=== PATIENT | male | born 1955 | race Caucasian/White ===

== ENCOUNTER 2019-03-29 12:43 | Emergency (ER) | payer OTHER, SELFPAY ==
[2019-03-29 12:55] VITALS: BP 159/99; PULSE 65; RESP 19; TEMP 36.8; O2SAT 96; BMI 29.2
--- NOTE | 2019-03-29 12:55 | DI.RAD.S_ITS ---
PROCEDURE: XR CHEST 2V INDICATIONS: cough TECHNIQUE: 2 views of the chest were acquired. COMPARISON: None. FINDINGS: Surgical changes and devices: None. Lungs and pleura: Mild, streaky opacities are seen at the lung bases. No pleural effusions or pneumothorax. Low lung volumes are noted. This causes a crowded appearance to the lung markings and limits evaluation. Mediastinum: Mediastinal contours are normal. Heart size is normal. Bones and chest wall: No suspicious bony abnormalities. Soft tissues appear unremarkable. IMPRESSION: Likely atelectasis is seen at the lung bases. Differential diagnosis includes mild infiltrate, yet this is considered to be less likely. As clinically appropriate, a short-term followup chest series (with PA and lateral views) performed in deep inspiration is suggested for further evaluation. Dictated by: Guero Marroquin M.D. on 03/29/2019 at 12:27 Approved by: Guero Marroquin M.D. on 03/29/2019 at 12:28
[2019-03-29 13:52] VITALS: PULSE 69; RESP 20; O2SAT 90
[2019-03-29] MEDS: ALBUTEROL/IPRATROPIUM 3 ML AMPUL INH (13:52)
--- NOTE | 2019-03-29 14:21 | ED_ITS ---
HPI - URI/Sore Throat <RAFAT Barahona - Last Filed: 03/29/19 23:53> General Chief Complaint: Upper Respiratory Symptoms Stated Complaint: bad cough and a fracture maxil pallet possible Time Seen by Provider: 03/29/19 12:54 Source: patient Mode of arrival: Ambulatory Limitations: no limitations History of Present Illness HPI Narrative: This is a 63-year-old male, nonsmoker, who presents to ED with moist cough but difficulty to expectorate, short of breath, chest discomfort with coughing for last 5-6 days, fatigue, sinus infection, headaches and pain in left side hard palate for several month. Patient reports he noticed productive cough with yellowish mucus since yesterday and he is reporting low- grade fever up to 100.6 with night sweats. Patient has been taking codeine s yrup for his cough and occasional wvkj-wem-ntuotrk Mucinex for his symptoms. Patient states he had 2 sinus infections recently but states he always have runny nose. His nasal discharge is clear from L naris only and his facial discomfort is chronic as well w/o changes. Patient stop taking Flonase about a week ago. Patient states he had a partial denture in left upper region and several months ago he felt a crack and since the he has been having discomfort. Patient denies bleeding, swelling, discharge from the site. He states he has an appointment this coming week with dentist for this but would like to get checked out since his in ED. Patient reports history of multiple sinus surgeries and CLL but not requiring any treatments at this time. Related Data Previous Rx's Medication Instructions Recorded amoxicillin-pot clavulanate 875 mg PO Q12H 10 Days #0 tab 04/07/16 [Augmentin] albuterol sulfate 2 inhalation INHALATION Q4-6H PRN 03/29/19 #1 each doxycycline hyclate 100 mg PO BID 7 Days #14 tab 03/29/19 Allergies Allergy/AdvReac Type Severity Reaction Status Date / Time Sulfa (Sulfonamide Allergy Intermediate Unverified 06/19/17 12:13 Antibiotics) [SULFA (SULFONAMIDE ANTIBIOTICS)] Review of Systems <RAFAT Barahona - Last Filed: 03/29/19 23:53> Review of Systems Narrative: General: Reports fever, chills, fatigue, malaise, sweats. HEENT: Denies (+) sinus pain, ear pain, sore throat, difficulty swallowing, dizziness. Respiratory: See HPI Cardiovascular: Denies chest pain, palpitations, orthopnea, edema. Gastrointestinal: Denies nausea, vomiting, abdominal pain, diarrhea, constipation, melena. : Denies dysuria, frequency, incontinence, hematuria, urinary retention. Musculoskeletal: Denies weakness, joint pain or bony pain. Skin: Denies rash, skin lesions, or other. Neurologic: Denies weakness, (+) headache, numbness, change in speech, confusion, seizures, incoordination. Psychiatric: No concerning psychosocial issues. 12-point review of systems is negative except for those stated above. Patient History <RAFAT Barahona - Last Filed: 03/29/19 23:53> Medical History CLL (chronic lymphocytic leukemia) (Acute) Retinal detachment (Acute) Surgical History H/O knee surgery (Acute) H/O sinus surgery (Acute) History of mandibular surgery (Acute) Social History Smoking Status: Never smoker Smoking Status: Never smoker alcohol intake frequency: holidays/special occasions only Substance Use Type: does not use Exam <RAFAT Barahona - Last Filed: 03/29/19 23:53> Narrative Exam Narrative: GEN: Alert, oriented x 3, well nourished, and in mild distress. Head: Normal cephalic, atraumatic. No scalp or temporal tenderness, palpable mass or rash. EYES: Pupils are equal, round, and reactive to light and accommodation. Extraocular muscles are intact bilaterally. There is no subconjunctival hemorrhage, exudate and sclera non-icteric. ENT: Bilateral auditory canals and tympanic membranes clear. Hearing grossly intact. Nose without bleeding, purulent discharge or deviation. Swollen turbinates with erythema. Facial sinuses nontender to palpate. Mucous membrane moist, no mucosal lesion, bleeding, drainage, deformity. Throat without erythema, tonsillar hypertrophy or exudate. Uvula in midline, airway patent. Neck: Trachea in midline. No JVD, tender to palpate in cervical lymph nodes. No masses or thyroid megaly. Supple, non-tender and no meningeal signs. CARDIAC: Normal regular rate and rhythm without murmurs, gallops, or rubs. No chest wall tenderness. No peripheral edema, cyanosis or pallor. Capillary refill is less than 2 seconds. RESPIRATORY: Lungs are clear to auscultate bilaterally but decreased. Intermittent coughing during exam without wheezes, rales, or rhonchi. No strid or, respiratory distress, increase work of breathing, or accessary muscle used. ABD: Abdomen soft, nontender and non-distended. No guarding or rebound tenderness to palpate. Bowel sounds are normal in all 4 quadrants. There is no palpable masses or organomegaly. EXT: Full painless ROM of all extremities with no loss of sensation, strength, effusion or edema. SKIN: Warm, dry, normal color for patient. No erythema, lesions or rash over visible areas. BACK: Nontender without deformity or crepitance. No flank tenderness. NEUROLOGICAL: Alert and oriented to place, time and person. Sensation and motor function intact bilaterally. No facial droops, dysphasia. PSYCHIATRIC: Good judgement and reason, without hallucinations, abnormal affect or abnormal behaviors during the examination. Patient is not suicidal. Initial Vital Signs Initial Vital Signs: Vital Signs Temperature 98.3 F 03/29/19 12:55 Pulse Rate 65 03/29/19 12:55 Respiratory Rate 03/29/19 12:55 Blood Pressure 159/99 H 03/29/19 12:55 Pulse Oximetry 96 03/29/19 12:55 <Roya Moon DO - Last Filed: 03/30/19 08:20> Initial Vital Signs Initial Vital Signs: Vital Signs Temperature 98.3 F 03/29/19 12:55 Pulse Rate 65 03/29/19 12:55 Respiratory Rate 03/29/19 12:55 Blood Pressure 159/99 H 03/29/19 12:55 Pulse Oximetry 96 03/29/19 12:55 Course <RAFAT Barahona - Last Filed: 03/29/19 23:53> Orders Ordered: Discontinued Medications Albuterol (Ventolin) 5 mg INH NOW ONE Stop: 03/29/19 14:21 Albuterol (Ventolin) 2.5 mg INH NOW ONE Stop: 03/29/19 14:50 Last Admin: 03/29/19 14:52 Dose: 2.5 mg Documented by: KADIE Albuterol/Ipratropium (Duoneb) 3 ml INH NOW ONE Stop: 03/29/19 13:38 Last Admin: 03/29/19 13:52 Dose: 3 ml Documented by: KADIE Vital Signs Vital signs: Vital Signs - 8 hr 03/29/19 12:55 03/29/19 13:52 Temperature 98.3 F Pulse Rate 65 69 Respiratory Rate 19 20 Blood Pressure 159/99 H Pulse Oximetry 96 90 L <Roya Moon DO - Last Filed: 03/30/19 08:20> Orders Ordered: Discontinued Medications Albuterol (Ventolin) 5 mg INH NOW ONE Stop: 03/29/19 14:21 Albuterol (Ventolin) 2.5 mg INH NOW ONE Stop: 03/29/19 14:50 Last Admin: 03/29/19 14:52 Dose: 2.5 mg Documented by: KADIE Albuterol/Ipratropium (Duoneb) 3 ml INH NOW ONE Stop: 03/29/19 13:38 Last Admin: 03/29/19 13:52 Dose: 3 ml Documented by: KADIE Vital Signs Vital signs: Vital Signs - 8 hr 03/29/19 12:55 03/29/19 13:52 Temperature 98.3 F Pulse Rate 65 69 Respiratory Rate 19 20 Blood Pressure 159/99 H Pulse Oximetry 96 90 L MDM - URI/Sore Throat <RAFAT Barahona - Last Filed: 03/29/19 23:53> Differential Diagnosis Differential diagnosis: Likely upper respiratory infection, bronchitis and other (pneumonia) Medical Records Attestation: I reviewed the patient's medical records. Imaging Data Chest x-ray: Radiologist's Impression: [address] [address] XRay Report Signed Patient: Francisco Javier Rosado [facility]#: [id number] : 7Acct:[id number] Age/Sex: 63 / MDate of Service: 03/29/19 Loc: ED Accession Number: [id number] Procedure: XR chest 2V Ordering Provider: Omer Petersen PROCEDURE: XR CHEST 2V INDICATIONS: cough TECHNIQUE: 2 views of the chest were acquired. COMPARISON: None. FINDINGS: Surgical changes and devices: None. Lungs and pleura: Mild, streaky opacities are seen at the lung bases. No pleural effusions or pneumothorax. Low lung volumes are noted. This causes a crowded appearance to the lung markings and limits evaluation. Mediastinum: Mediastinal contours are normal. Heart size is normal. Bones and chest wall: No suspicious bony abnormalities. Soft tissues appear unremarkable. IMPRESSION: Likely atelectasis is seen at the lung bases. Differential diagnosis includes mild infiltrate, yet this is considered to be less likely. As clinically appropriate, a short-term followup chest series (with PA and lateral views) performed in deep inspiration is suggested for further evaluation. Dictated by: Guero Marroquin M.D. on 03/29/2019 at 12:27 Approved by: Guero Marrqouin M.D. on 03/29/2019 at 12:28 MDM Narrative Medical decision making narrative: Oral exam benign and pain lasted several months there is no change today and advised to follow-up with dentist as scheduled. Turbinate swollen with erythema but no purulent discharge was seen. Facial sinus without significant tenderness to palpate. Patient advised to restart Flonase and continue with Neti potty daily for nasal rinses. Duoneb and albuterol treatment provided for short of breath, self reported wheezing, cough which improved patient's symptoms, however, patient has or to set decreased from 96% initially to 93% post neb treatment. No respiratory distress or increased work of breathing noted. CXR shows mild streaky opacity at the lung bases. Will treat patient with doxycycline b.i.d. 7 day course for pneumonia. Patient discharged to home with albuterol and a spacer for prn use. Return precautions were discussed with the patient and advised to continue with xoih-shf-nidhfuj Mucinex and codeine elix for night use for cough. Patient advised to follow up with PCP in 2-3 days. Patient verbalized understanding and agrees with treatment plan. Discharge Plan Departure Patient Disposition: Home Clinical Impression: Pneumonia Qualifiers: Pneumonia type: due to unspecified organism Laterality: bilateral Lung location: lower lobe of lung Qualified Code(s): J18.9 - Pneumonia, unspecified organism Discharge Date/Time: 03/29/19 15:20 Instructions: DI for Pneumonia -- Adult Activity Restrictions/Additional Instructions: You have been diagnosed with [pneumonia. Lung x-ray test shows mild streaky opacities at the lung bases.]. What to do: *Take your medications as directed. Will treat with antibiotic medication doxycycline for your symptoms. Please take doxycycline twice a day forced 7 days. Use inhaler for short of breath, wheezing, breathing difficulty every 4-6 hours using spacer. This medications were transmitted to [facility] in [place]. Please take pofo-hcc-kbzzoyl Tylenol and or Motrin as needed for discomfort and fever. Please restart using Flonase for nasal congestion. You can add Mucinex for cough and cold symptoms. *Follow up with your primary care provider and dentist in 2-3 days, call for an appointment. Let them know you were seen in the ED and that we asked you to be seen in follow up. *Return to ED if you have any new, worsening, or concerning symptoms, such as [chest pain, breathing difficulty, unable to tolerate fluids, high fever or any acute concerns]. Prescriptions: New doxycycline hyclate 100 mg tablet 100 mg PO BID 7 Days Qty: 14 RF: 0 albuterol sulfate 90 mcg/actuation aerosol powdr breath activated 2 inhalation INHALATION Q4-6H PRN (Reason: shortness of breath or wheezing) Qty: 1 RF: 0 No Action amoxicillin-pot clavulanate [Augmentin] 875 MG/125 MG tablet 875 mg PO Q12H 10 Days Qty: 0 RF: 0 Referrals: Mat Santa MD [Primary Care Provider] -
[2019-03-29] MEDS: ALBUTEROL 2.5 MG/3 ML NEB (ADULT) INH (14:52)
[2019-03-29 14:53] VITALS: PULSE 64; RESP 20; O2SAT 92
[2019-03-29 15:00] VITALS: O2SAT 93
== END 2019-03-29 15:20 | disposition home or self-care (01) ==
PROVIDERS: Emergency Provider Nurse Practitioner Family; PCP Family Medicine
DX: J18.9 Pneumonia, unspecified organism (principal)
CPT/HCPCS: 71046; 94640; 99284; J7613

== ENCOUNTER → 2019-08-26 10:58 | Outpatient (CLI) | payer OTHER, SELFPAY ==
--- NOTE | 2019-08-26 | DI.US.S_ITS ---
PROCEDURE: US ABDOMEN COMPLETE INDICATIONS: LEFT UPPER QUADRANT PAIN TECHNIQUE: Real-time scanning was performed of the abdominal and retroperitoneal organs, with image documentation. COMPARISON: [facility], CT, KIDNEY/ URETER/BLADDER, 04/29/2013, 12:58. FINDINGS: Liver: Liver is diffusely increased in echogenicity. No focal hepatic abnormalities identified. Normal hepatic size. Gallbladder: No gallstones identified. Normal gallbladder wall. No pericholecystic fluid. Negative sonographic Gillespie sign. Biliary ducts: Intrahepatic bile ducts are non-dilated. Extrahepatic bile duct caliber measures 4.0 mm. Normal is 6-7 mm or less in diameter, or 10 mm or less post-cholecystectomy. Pancreas: Visualized portions of the pancreas are sonographically normal. Spleen: Spleen is normal in size and homogeneous in echotexture. Kidneys: Kidneys are normal in size and echotexture. Right kidney measures 12.4 cm long; left kidney measures 12.6 cm long. No hydronephrosis or nephrolithiasis. Possible solid hypoechoic mass involving the posterior aspect of the midpole involving the left kidney measuring up to 2.8 cm 30 mm right renal cyst. . Aorta: Visualized aorta is normal in caliber at less than 3 cm. Iliacs: Proximal common iliac arteries are normal in caliber at less than 2.5 cm. IVC: Intrahepatic inferior vena cava is patent. Miscellaneous: No free abdominal fluid. IMPRESSION: 1. Increased hepatic echogenicity noted possibly related to hepatic steatosis but other sources of hepatocellular disease cannot be excluded. Recommend clinical correlation. 2. Possible solid hypoechoic mass involving the posterior aspect of the mid left kidney. Renal protocol CT is recommended for further assessment. Dictated by: Alfred Oglesby [facility] Interpreted: Dinah Ward MD on 08/26/2019 at 12:07 Approved by: Dinah Ward MD, PhD on 08/26/2019 at 14:40
== END ==
PROVIDERS: PCP Family Medicine; Referring Provider Family Medicine; Visit Provider Family Medicine
DX: R10.12 Left upper quadrant pain (principal)
CPT/HCPCS: 76700

== ENCOUNTER → 2019-09-01 11:56 | Outpatient (CLI) | payer OTHER, SELFPAY ==
[2019-09-01 12:45] LABS: BUN Creatinine Ratio 15.3 (6-22); Blood Urea Nitrogen 11 mg/dL (9-20); Calcium 9.5 mg/dL (8.4-10.2); Carbon Dioxide 27 mmol/L (22-32); Chloride 106 mmol/L (98-107); Estimated Glomerular Filt Rate > 60.0 mL/min (>60); Glucose 105 mg/dL (80-110); HEMOLYSIS < 15 (0-50); Potassium 4.4 mmol/L (3.4-5.1); Sodium 137 mmol/L (137-145)
--- NOTE | 2019-09-01 13:20 | DI.CT.S_ITS ---
PROCEDURE: CT ABDOMEN PELVIS WO/W CON INDICATIONS: Disorders of kidney and ureter TECHNIQUE: Optional 5 mm thick noncontrast images acquired from the diaphragm to the symphysis pubis. After the administration of intravenous contrast, 5 mm thick images acquired from the diaphragm to the symphysis pubis after a 10-minute delay. 2 mm thick coronal and sagittal reformats were then performed of the kidneys and ureters. For radiation dose reduction, the following was used: automated exposure control, adjustment of mA and/or kV according to patient size. COMPARISON: [facility], US, US ABDOMEN COMPLETE, 08/26/2019, 11:10. FINDINGS: Image quality: Excellent. Lung bases: Lung bases are clear. Heart size is normal. Urinary system: Both kidneys are normal in size, without hydronephrosis or nephrolithiasis on pre-contrast images. No perinephric fat stranding. There is normal bilateral renal enhancement. No discrete mass is seen. No correlate to the ultrasound findings from recent study dated 08/26/19. Renal calyces appear normal in morphology when filled with contrast. Opacified portions of both ureters demonstrate normal caliber. Bladder wall thickness is normal. No calcified bladder stones. Subcentimeter renal hypodensities, statistically cysts, although technically too small to characterize accurately and therefore nonspecific. Other solid organs: Liver is normal in size and enhancement. Gallbladder unremarkable. Biliary system is non dilated. Pancreas enhances normally. Spleen is normal in size and enhancement. No adrenal nodules. Peritoneum and bowel: Bowel loops demonstrate normal wall thickness and caliber. Large amount of diffuse stool. No free fluid or air. Nodes and vessels: Shotty retroperitoneal lymph nodes, subcentimeter in size. Aorta and inferior vena cava are normal in size. Abdominal wall: No ventral hernias. Pelvis: No pathologic free pelvic fluid. No inguinal hernias or adenopathy. Bones: No suspicious bony lesions. No vertebral body compression fractures. Bilateral hip joint degeneration. IMPRESSION: Overall, no mass or correlate to the ultrasound findings from recent study dated 08/16/19, suggesting the sonographic appearance was artifactual. No nephrolithiasis. No hydronephrosis. Dictated by: Carlos Eduardo Rucker M.D. on 09/02/2019 at 10:07 Approved by: Carlos Eduardo Rucker M.D. on 09/02/2019 at 10:16
== END ==
PROVIDERS: PCP Family Medicine; Referring Provider Family Medicine; Visit Provider Family Medicine
DX: N28.89 Other specified disorders of kidney and ureter (principal)
CPT/HCPCS: 36415; 74178; 80048; Q9967

== ENCOUNTER → 2020-06-20 09:26 | Outpatient (CLI) | payer OTHER, SELFPAY ==
[2020-06-20 20:13] LABS: HEMOLYSIS < 15 (0-50); Potassium 4.5 mmol/L (3.4-5.1)
[2020-06-20 20:14] LABS: BUN Creatinine Ratio 13.5 (6-22); Blood Urea Nitrogen 12 mg/dL (9-20); Calcium 9.8 mg/dL (8.4-10.2); Carbon Dioxide 28 mmol/L (22-32); Chloride 103 mmol/L (98-107); Estimated Glomerular Filt Rate > 60.0 mL/min (>60); Glucose 109 mg/dL (80-110); Sodium 137 mmol/L (137-145)
[2020-06-20 20:24] LABS: Hematocrit 43.3 % (41-53); Hemoglobin 14.3 g/dL (13.5-17.5); Mean Corpuscular HGB Conc 32.9 % (30-36); Mean Corpuscular Hemoglobin 29.6 PG (26-34); Mean Corpuscular Volume 89.9 fL (80-100); Platelet Count 155 X10^3/uL (150-400); Red Blood Cell Count 4.82 X10^6/uL (4.5-5.9); Red Cell Distribution Width 14.4 % (11.6-14.8)
[2020-06-20 20:29] LABS: Add Manual Diff / Slide Review YES
[2020-06-20 20:30] LABS: Free T4, Direct Thyroxine 0.99 ng/dL (0.78-2.19)
[2020-06-20 20:49] LABS: Neutrophils Absolute Manual 2760 /uL (3000-5900); RBC Morphology Normal Morphology; Smudge Cells 2+; Total Cells Counted 100
[2020-06-20 21:04] LABS: Vitamin B12 897 pg/mL (239-931)
[2020-06-21 15:41] LABS: Erythrocyte Sedimentation Rate 1 MM/HR (0-15)
[2020-06-23 00:44] LABS: Anti Gliadin IgG Ab 2 units (0-19); Free Kappa Lt Chains, Serum 13.3 mg/L (3.3-19.4); Free Lambda Lt Chains,Serum 7.5 mg/L (5.7-26.3); Gliadin Gluten IgA 2 units (0-19)
[2020-06-23 13:14] LABS: Immunoglobulin A, Serum 51 mg/dL (61-437); Immunoglobulin G,Serum 538 mg/dL (603-1613); Immunoglobulin M, Serum 28 mg/dL (20-172)
[2020-06-23 13:14] LABS: Albumin 3.9 g/dL (2.9-4.4); Alpha-1-Globulin 0.3 g/dL (0.0-0.4); Alpha-2-Globulin 0.6 g/dL (0.4-1.0); Gamma Globulin 0.6 g/dL (0.4-1.8); Globulin Total 2.4 g/dL (2.2-3.9); Protein, Total 6.3 g/dL (6.0-8.5)
== END ==
PROVIDERS: Psychiatry & Neurology Neurology; PCP Family Medicine; Referring Provider Family Medicine; Visit Provider Family Medicine
DX: C91.10 Chronic lymphocytic leukemia of B-cell type not having achieved remission (principal); R20.0 Anesthesia of skin
CPT/HCPCS: 80048; 82607; 82784; 83516; 83883; 84155; 84165; 84439; 84443; 85007; 85025; 85651; 86334

== ENCOUNTER → 2020-08-09 11:36 | Outpatient (CLI) | payer OTHER, SELFPAY ==
[2020-08-09 21:24] LABS: COVID19 - ORCAS (NP or Nasal) Negative (Negative)
== END ==
PROVIDERS: PCP Family Medicine; Visit Provider Physician Assistant
DX: Z20.822 Contact with and (suspected) exposure to COVID-19 (principal)
CPT/HCPCS: U0003

== ENCOUNTER → 2020-08-11 09:12 | Outpatient (CLI) | payer OTHER, SELFPAY ==
--- NOTE | 2020-08-11 09:16 | DI.MRI.S_ITS ---
PROCEDURE: MR LUMBAR SPINE WO CON INDICATIONS: back pain TECHNIQUE: Noncontrast sagittal T1 spin echo and T2 fast echo, sagittal STIR, axial T1 and T2 fast spin echo through the lumbar spine. In cases with scoliosis, additional coronal T2 fast spin echo may be performed. COMPARISON: [facility], MR, L-SPINE WITHOUT CONTRAST, 08/30/2008, 15:43. [facility], CT, CT ABDOMEN PELVIS WO/W CON, 09/01/2019, 13:14. FINDINGS: Image quality: Diagnostic, with note made of motion artifact. Alignment and Curvature: Mild levoconvex scoliotic curvature is noted. No focal AP alignment abnormality is seen. Bone Marrow: Marrow signal is within normal limits. No acute vertebral body compression fractures. Spinal Cord: Conus medullaris terminates at the L1 level. Visualized cord demonstrates normal signal and size. Paraspinous Soft Tissues: No paravertebral masses. A 12 mm right renal cyst is seen, which has the appearance of a simple cyst on the recent prior CT. T12-L1: Normal appearance. L1-L2: Normal appearance. L2-L3: The disc height is well-preserved. Loss of disc signal is seen at this level. Mild to moderate disc bulge is seen, which is eccentric to the left. There is a mild central disc protrusion. There is a focal annular fissure seen posteriorly. There is xxia-py-uifreuem left-sided and no right-sided neural foraminal narrowing seen. Mild to moderate central canal narrowing is seen. L3-L4: The disc height is well-preserved. Loss of disc signal is seen at this level. Moderate disc bulge is seen, which is eccentric to the right. There is a central disc protrusion. There is at least moderate right-sided and mild left-sided facet hypertrophy seen. There is at least moderate right-sided and ptra-ak-lstwurzx left-sided neural foraminal narrowing seen. There is a mild degree of compression seen upon the exiting right L3 nerve root. Moderate central canal narrowing is seen. L4-L5: Moderate to severe loss of disc height and disc signal can be seen. Reactive marrow endplate changes are seen, which are hyperintense on T1-weighted and T2-weighted imaging and most consistent with fatty metaplasia (Modic type II changes). At least moderate disc bulge is seen, with a central disc protrusion. Moderate facet joint hypertrophy is seen. There is moderate to severe left-sided and moderate right-sided neural foraminal narrowing seen. There is a degree of compression seen upon the exiting nerve roots. Mild central canal narrowing is seen. L5-S1: Moderate loss of disc height is seen. Loss of disc signal is seen. Mild to moderate disc bulge is seen, which is eccentric to the left. There is a mild central disc protrusion. Mild facet joint hypertrophy is seen. There is at least moderate right-sided and moderate to severe left-sided neural foraminal narrowing seen. There is a degree of compression seen upon the exiting nerve roots. Minimal central canal narrowing is seen. IMPRESSION: Multiple levels of lumbar spine degenerative change are seen, which have clearly progressed compared to 2009. Several sites of significant neural foraminal narrowing can be seen, with associated exiting nerve root compression. Dictated by: Guero Marroquin M.D. on 08/11/2020 at 12:32 Approved by: Guero Marroquin M.D. on 08/11/2020 at 12:37
--- NOTE | 2020-08-11 14:39 | P.PCN_ITS ---
Cardiac Stress Test Report Referral & Results Date Patient Seen: 08/11/20 Requesting provider: Kian Prasad Indication: Chest pressure/pain Rest ECG: Unremarkable Procedure Note: Today following both written and verbal informed consent the patient was exercised according to a standard Cory protocol patient went for a total of 4 minutes 47 seconds achieving a maximum heart rate of 134 maximum systolic blood pressure of 270. This is approximately 7.0 METS. Exercise was terminated at this point because of patient was unable to continue. Patient was also given Cardiolite through a previously started Hep-Lock IV by the diagnostic imaging staff approximately 1 minute prior to the cessation of exercise. There are no ST-T segment changes identified There were frequent PACs and PVCs primarily in the recovery portion of the test, this included a 10 beat run of VT as well as shorter runs and ventricular bigeminy as well. This occurred while he was quite hypertensive in the immediate post exercise recovery portion His blood pressure response was quite excessive as above Function aerobic impairment rates about 33% sedentary scale Impression: No clear evidence of ischemia. Quite hypertensive response suggest patient would benefit from antihypertensive therapy or adjustment of current antih ypertensive therapy. Given his dysrhythmia would also suggest echocardiography. These recommendations were discussed with patient at time of treadmill Please note: Actual ECG tracings can be found in the PACS system.
--- NOTE | 2020-08-11 18:29 | DI.NM.S_ITS ---
PROCEDURE PERFORMED: Exercise treadmill stress and rest myocardial perfusion imaging study with gating to assess ejection fraction and regional wall motion. DATE OF SERVICE: August 11, 2020 ORDERING PROVIDER: Kian Prasad MD INDICATIONS: The patient is a 65-year-old male with fibromyalgia and atypical chest pressure lasting a few seconds. CARDIAC STRESS: The patient was able to exercise for a total of 4 minutes 47 seconds on a standard Cory protocol suggesting moderate-severely reduced exercise capacity with an MARK of +35%. He had a mildly blunted heart rate response, achieving a maximum heart rate of 134 BPM (86% of his predicted maximum) and a markedly hypertensive blood pressure response to exercise with a resting blood pressure 146/98, increasing to a maximum of 270/100. He developed mild chest discomfort and fatigue although details are not provided. His resting ECG shows sinus rhythm with normal ST segments. There are no significant ST-segment shifts. He had occasional PVCs and a 10 beat run of nonsustained ventricular tachycardia in early recovery but was apparently asymptomatic. At 3 minutes 45 seconds of exercise a heart rate of 119 BPM, 26.8 millicuries of technetium-99m Myoview was injected and he was imaged 25 minutes later using a gated SPECT acquisition protocol. Earlier in the day while at rest, he had been injected with 11.6 millicuries of technetium-99m Myoview and was imaged 30 minutes later, again using a gated SPECT acquisition protocol. FINDINGS: RAW DATA: There is fair myocardial tracer uptake. The lung/heart ratio was normal at 0.29 with a normal TID ratio of 0.89. QUANTITATED GATED SPECT: Post-stress ejection fraction is 69% without any focal wall motion abnormality but probable increased left ventricular volumes. Resting ejection fraction is 61% with moderately increased resting end-diastolic volume of 187 mL. MYOCARDIAL PERFUSION IMAGING: Post-stress supine images show a fairly normal myocardial perfusion pattern without any significant perfusion defects, supported by normal perfusion imaging in the prone position. The resting images show no areas of improvement. IMPRESSION: 1. Normal myocardial perfusion study for ischemia although with slightly reduced sensitivity because of a marginal heart rate response to exercise. 2. No evidence of myocardial ischemia or previous myocardial infarction. 3. Normal left ventricular systolic function with moderately increased left ventricular volumes. 4. Moderate-severely reduced exercise capacity with exertional chest discomfort that was not specified and a significant hypertensive blood pressure response to exercise, but no ECG evidence of ischemia. He had PVCs and a 10 beat run of nonsustained ventricular tachycardia in early recovery, likely reflecting his severe hypertension. Francisco Javier Rosado - CARRIE/mindy/hunter doc#: [id number]/job#: [id number] dd: 08/11/2020 16:44:00 dt: 08/11/2020 17:23:00 DICTATING MD/COPIES TO: Niels Oneill MD; Kian Prasad MD COPIES MNE: TOMAS;
== END ==
PROVIDERS: PCP Family Medicine; Referring Provider Family Medicine; Visit Provider Family Medicine
DX: R01.1 Cardiac murmur, unspecified (principal); I10 Essential (primary) hypertension; M54.32 Sciatica, left side; G89.29 Other chronic pain; M54.9 Dorsalgia, unspecified
CPT/HCPCS: 72148; 78452; 93016; 93017; 93018; A9502

== ENCOUNTER → 2020-12-09 13:08 | Outpatient (CLI) | payer OTHER, SELFPAY ==
[2020-12-09 20:19] LABS: BUN Creatinine Ratio 14.8 (6-22); Blood Urea Nitrogen 12 mg/dL (9-20); Calcium 9.4 mg/dL (8.4-10.2); Carbon Dioxide 31 mmol/L (22-32); Chloride 103 mmol/L (98-107); Estimated Glomerular Filt Rate > 60.0 mL/min (>60); Glucose 114 mg/dL (80-110); HEMOLYSIS < 15 (0-50); Potassium 4.1 mmol/L (3.4-5.1); Sodium 138 mmol/L (137-145)
[2020-12-09 20:46] LABS: Cortisol Random 9.88 ug/dL
[2020-12-16 13:36] LABS: Aldosterone/Renin Activity Rat >40.7 (0.0-30.0); Plama Renin, LC/MS/MS <0.167 ng/mL/hr (0.167-5.380)
== END ==
PROVIDERS: PCP Family Medicine; Visit Provider Internal Medicine Cardiovascular Disease
DX: I10 Essential (primary) hypertension (principal); I47.2 Ventricular tachycardia; I49.9 Cardiac arrhythmia, unspecified
CPT/HCPCS: 80048; 82088; 82384; 82533; 84244

== ENCOUNTER → 2021-03-31 07:56 | Outpatient (CLI) | payer OTHER, SELFPAY ==
[2021-03-31 19:26] LABS: COVID19 - ORCAS (NP or Nasal) Negative (Negative)
== END ==
PROVIDERS: PCP Family Medicine; Visit Provider Physician Assistant Medical
DX: Z01.812 Encounter for preprocedural laboratory examination (principal); Z20.822 Contact with and (suspected) exposure to COVID-19
CPT/HCPCS: U0003

== ENCOUNTER → 2021-05-18 10:56 | Outpatient (CLI) | payer MEDICARE, OTHER, SELFPAY ==
[2021-05-18 19:01] LABS: Alanine Aminotransferase 46 IU/L (<50); Albumin 4.6 g/dL (3.5-5.0); Albumin Globulin Ratio 2.1 (1.0-2.8); Alkaline Phosphatase 45 U/L (38-126); Aspartate Aminotransferase 49 IU/L (17-59); BUN Creatinine Ratio 17.7 (6-22); Bilirubin Total 0.7 mg/dL (0.2-1.3); Blood Urea Nitrogen 14 mg/dL (9-20); Calcium 9.6 mg/dL (8.4-10.2); Carbon Dioxide 31 mmol/L (22-32); Chloride 103 mmol/L (98-107); Estimated Glomerular Filt Rate > 60.0 mL/min (>60); Globulin 2.2 g/dL (1.7-4.1); Glucose 110 mg/dL (80-110); HEMOLYSIS 17 (0-50); Potassium 4.6 mmol/L (3.4-5.1); Sodium 140 mmol/L (137-145); Total Protein 6.8 g/dL (6.3-8.2)
[2021-05-18 19:08] LABS: Rheumatoid Factor < 8.6 IU/mL (<12.0)
[2021-05-18 19:09] LABS: Hematocrit 42.9 % (41-53); Hemoglobin 14.3 g/dL (13.5-17.5); Mean Corpuscular HGB Conc 33.2 % (30-36); Mean Corpuscular Hemoglobin 29.4 PG (26-34); Mean Corpuscular Volume 88.4 fL (80-100); Platelet Count 157 X10^3/uL (150-400); Red Blood Cell Count 4.86 X10^6/uL (4.5-5.9); White Blood Cell Count 11.8 X10^3/uL (4.5-11.0)
[2021-05-18 19:20] LABS: Add Manual Diff / Slide Review YES
[2021-05-18 20:30] LABS: Neutrophils Absolute Manual 2006 /uL (3000-5900); Total Cells Counted 100
[2021-05-18 20:31] LABS: RBC Morphology Normal Morphology; Smudge Cells 2+
[2021-05-18 20:32] LABS: Erythrocyte Sedimentation Rate 2 MM/HR (0-15)
== END ==
PROVIDERS: PCP Family Medicine; Visit Provider Family Medicine
DX: M79.671 Pain in right foot (principal)
CPT/HCPCS: 80053; 85007; 85025; 85651; 86430

== ENCOUNTER → 2021-07-10 14:10 | Outpatient (CLI) | payer MEDICARE, OTHER, SELFPAY ==
[2021-07-10 16:47] LABS: COVID-19 CEPHEID PCR (VTM/NP) Negative (Negative)
== END ==
PROVIDERS: PCP Family Medicine; Visit Provider Family Medicine Sleep Medicine
DX: Z20.822 Contact with and (suspected) exposure to COVID-19 (principal)
CPT/HCPCS: C9803; U0003; U0005

== ENCOUNTER → 2023-01-17 10:55 | Outpatient (CLI) | payer MEDICARE, OTHER, SELFPAY ==
[2023-01-17 11:56] LABS: C-Reactive Protein Quant < 0.5 mg/dL (<1.0)
[2023-01-17 12:06] LABS: Rheumatoid Factor < 8.6 IU/mL (<12.0)
[2023-01-17 12:14] LABS: Erythrocyte Sedimentation Rate 3 MM/HR (0-15)
[2023-01-22 22:07] LABS: ANA Screen, IFA Negative (.); CCP Antibodies IgG/IgA 0 units (0-19)
== END ==
PROVIDERS: PCP Family Medicine; Referring Provider Anesthesiology; Visit Provider Anesthesiology
DX: M19.011 Primary osteoarthritis, right shoulder (principal); M25.511 Pain in right shoulder; G89.29 Other chronic pain; M25.50 Pain in unspecified joint
CPT/HCPCS: 36415; 85651; 86038; 86140; 86200; 86430; 99214

== ENCOUNTER → 2023-04-05 12:26 | Outpatient (CLI) | payer MEDICARE, OTHER, SELFPAY ==
--- NOTE | 2023-04-05 12:28 | DI.CT.S_ITS ---
PROCEDURE: CT ABDOMEN PELVIS W CON INDICATIONS: ABDOMINAL PAIN TECHNIQUE: After the administration of intravenous contrast, axial sections acquired from the lung bases to the pubic symphysis. Coronal and sagittal reformats were performed. For radiation dose reduction, the following was used: automated exposure control, adjustment of mA and/or kV according to patient size. COMPARISON: [facility], CT, CT ABDOMEN PELVIS WO/W CON, 09/01/2019, 13:14. FINDINGS: Image quality: Diagnostic. Lower Chest: Platelike atelectasis is present at the right lung base. A 5 mm pulmonary nodule is present at the left lung base unchanged from the study dated September 01, 2019. No pleural effusion. Heart is normal size. ABDOMEN: Liver: No solid mass. Gallbladder: Unremarkable. Biliary ducts: No biliary dilation. Pancreas: No ductal dilation. Spleen: Size is within normal limits. Adrenal Glands: No adrenal nodules. Kidneys and Ureters: No hydronephrosis. No solid mass. No complex renal cystic lesion which requires follow up. A low-density cystic lesion is present at the upper pole of the right kidney. Stomach and Bowel: The small bowel demonstrates normal caliber and wall thickness. The ascending and descending colon demonstrate normal caliber and wall thickness. A focal region of the transverse colon demonstrates circumferential wall thickening, luminal narrowing, and loss of the expected haustral folds. (series 2/image 42 and series 4/image 15). Peritoneum: No abnormal intraperitoneal fluid. No free air. Ventral Wall: No hernia. Abdominal Nodes: No retroperitoneal or mesenteric adenopathy by size criteria. Vessels: Aorta and inferior vena cava are normal in size. PELVIS: Pelvic Organs: Unremarkable. Bladder: Unremarkable. Pelvic Nodes: No enlarged lymph nodes. Miscellaneous: There is a borderline enlarged left inguinal lymph node (series 2/image 100). No other suspicious inguinal lymph nodes. Bones: No aggressive osseous abnormality. IMPRESSION: 1. Circumferential wall thickening and luminal narrowing of the transverse colon with loss of the expected haustral folds as above. The significance of this finding is unclear. Differential considerations include colitis as well as neoplasm. Direct visualization with colonoscopy could be used to further characterize this finding and exclude neoplasm. Of note, there is little to no inflammatory changes so seated with this region. 2. Normal appendix. 3. Borderline enlarged left inguinal lymph node of indeterminate significance. Consider short interval ultrasound follow-up to ensure resolution of this finding or evaluate for presence of the expected fatty hilum. Dictated by: Amy Wilkinson M.D. on 04/05/2023 at 15:23 Approved by: Amy Wilkinson M.D. on 04/05/2023 at 15:59
== END ==
LOC: CT 12:27
PROVIDERS: PCP Family Medicine; Referring Provider Internal Medicine Gastroenterology; Visit Provider Internal Medicine Gastroenterology
DX: R10.32 Left lower quadrant pain (principal)
CPT/HCPCS: 74177; Q9967